=== PATIENT | female | born 1985 ===

== ENCOUNTER 2022-03-22 04:44 | Inpatient (IN) | payer OTHER ==
--- NOTE | 2022-03-22 20:31 | PR ---
[facility] [address] [place] [address] Signed PP Progress Notes Datetime Report Generated by CPN: 03/22/2022 20:31 SUBJECTIVE: [id number] Pain: Within Normal Limits Nausea/Vomiting: Denies Flatus: No Bowel Movement: No Vital Signs: [id number] Vital Signs: Reviewed; Within Normal Limits Notable Details: Normotensive. Non-tachycardic EXAM: Ongoing Cardiovascular: Normal Respiratory: Normal Abdomen/Uterus: Normal Lochia: Normal Vulva/Perineum: Not Done Breasts: Not Done CVA Tenderness: Normal Extremities: Normal Progress: Normal Exam Comments: Resting in bed. Improved color IMPRESSION/PLAN/PROCEDURES: [id number] Impression: Normal Progression Other Impression: Acute blood loss anemia - improved Other Plans: Blood transfusion Progress Notes: Pt seen and evaluate. States she is feeling somewhat improved s/p 1u PRBC. Normotensive / non-tachycardic. No concerns w/ transfusion or other concerns at this time. Will carefully increase ambulation and reevaulate symptoms / labs in AM. Pt understands and agrees. Signing Physician: Shyla Persaud DO Copies: ~ *Electronically Signed* 03/22/222030 SHYLA PERSAUD DO PATIENT NAME: DONNA RAY PROGRESS NOTE DATE OF : 87 PHYSICIAN: SHYLA PERSAUD DO RPT #: [id number] REPORT IS CONFIDENTIAL AND NOT TO BE RELEASED WITHOUT AUTHORIZATION
--- NOTE | 2022-03-23 09:59 | PR ---
[facility] [address], [place] [address] Signed PP Progress Notes Datetime Report Generated by CPN: 03/23/2022 09:59 SUBJECTIVE: [id number] Pain: Within Normal Limits Nausea/Vomiting: Denies Flatus: Yes Bowel Movement: No Vital Signs: [id number] Vital Signs: Reviewed; Within Normal Limits Notable Details: Normotensive. Non-tachycardic EXAM: Ongoing Cardiovascular: Normal Respiratory: Normal Abdomen/Uterus: Normal Lochia: Normal Vulva/Perineum: Not Done Breasts: Not Done CVA Tenderness: Normal Extremities: Normal Incision: Not Applicable Progress: Normal Exam Comments: Fundus firm U-2 nontender. Improved color IMPRESSION/PLAN/PROCEDURES: [id number] Impression: Normal Progression Other Impression: Acute blood loss anemia improved Plan: Continue Present Management Other Plans: Consider discharge home today if asymptomatic Procedures: Transfusion Progress Notes: Pt seen and examined. Doing well. Hgb 6.4 s/p 1 u PRBC yesterday. Ambulated w/ assistance overnight but has not yet ambulated this morning. 2nd u PRBC transfusing now. Will recheck hemogram after infusion and monitor symptoms. If asymptomatic, will discharge home with oral iron. If symptomatic, will plan iron infusion and discharge home tomorrow. Tolerating full diet. Pain and lochia minimal. well. No fevers/chills or other concerns. Undecided on plans for contraception Signing Physician: Shyla Persaud DO *Electronically Signed* 03/23/22 0959 SHYLA PERSAUD DO PATIENT NAME: RAYDONNA PROGRESS NOTE DATE OF : 87 PHYSICIAN: SHYLA PERSAUD DO RPT #: [id number] REPORT IS CONFIDENTIAL AND NOT TO BE RELEASED WITHOUT AUTHORIZATION
== END 2022-03-23 18:25 | disposition home or self-care (01) | DRG 806 ==
LOC: FBCO 04:44 → FBC 04:50
PROVIDERS: ADMIT Obstetrics & Gynecology; ATTEND Obstetrics & Gynecology
PROC: 10E0XZZ Delivery of Products of Conception, External Approach (ICD-10-PCS; principal; 2022-03-22)
PROC: 0UQMXZZ Repair Vulva, External Approach (ICD-10-PCS; 2022-03-22)
PROC: 30233N1 Transfusion of Nonautologous Red Blood Cells into Peripheral Vein, Percutaneous Approach (ICD-10-PCS; 2022-03-22)
PROC: 30233N1 Transfusion of Nonautologous Red Blood Cells into Peripheral Vein, Percutaneous Approach (ICD-10-PCS; 2022-03-23)
DX: O71.82 Other specified trauma to perineum and vulva (principal); D62 Acute posthemorrhagic anemia; Z37.2 Twins, both liveborn; Z3A.38 38 weeks gestation of pregnancy; O99.03 Anemia complicating the puerperium; Z67.20 Type B blood, Rh positive; Z20.822 Contact with and (suspected) exposure to COVID-19
CPT/HCPCS: 36415; 36430; 81001; 83030; 83036; 85027; 85060; 86762; 86780; 86803; 86850; 86900; 86901; 86922; 87340; 87502; A9270; C9803; J1170; J2590; J2790; J7121; P9016; U0003